=== PATIENT | female | born 1960 | race Caucasian/White ===

== ENCOUNTER → 2020-12-16 | Outpatient (CLI) | payer BC ==
[2020-12-16 14:51] LABS: BGAS PH 7.45 (7.35-7.45)
[2020-12-16 15:14] LABS: CALCIUM 9.2 mg/dL (8.5-10.1); CREATININE 0.9 mg/dL (0.6-1.0); GFR 63.7; POTASSIUM 4.1 mmol/L (3.5-5.1)
--- NOTE | 2020-12-17 09:59 | RAD ---
CT scan of the chest without contrast 12/16/2020 CLINICAL HISTORY: Respiratory acidosis. TECHNIQUE: Unenhanced contiguous, 0.625 mm axial sections were obtained through the chest and upper a bdomen. 3 mm reconstructed sagittal, axial coronal images were obtained. One or more of the following individualized dose reduction techniques were utilized for this study: 1. Automated exposure control. 2. Adjustment of the mA and/or kV according to patient size. 3. Use of iterative reconstruction technique. FINDINGS: The heart and thoracic aorta are within normal limits. Prominent hilar and mediastinal lymp h nodes are seen which measure 5 mm to 1.7 cm in size. These may be reactive. No axillary lymphadenop athy is noted. Somewhat linear appearing areas of scarring and/or subsegmental atelectasis are seen involving both u pper lobes, the right middle lobe and both lower lobes. No area of consolidation is seen. A 4 mm calc ified granuloma is seen involving the left upper lobe. No pneumothorax or pleural effusion is noted. Images through the upper abdomen demonstrate surgical clips within the gallbladder fossa consistent w ith a cholecystectomy. Surgical clips are seen within the left upper quadrant of the abdomen. Minimal S-shaped curvature of the thoracolumbar spine is seen. Degenerative changes are seen involving the t horacic spine. IMPRESSION: Areas of scarring and/or subsegmental atelectasis are seen throughout both lungs as discu ssed above. No area of consolidation is seen. Electronically signed by: Bryan Hamilton MD (12/17/2020 9:57 AM) [id number]
--- NOTE | 2020-12-20 18:38 | RAD ---
DATE: 12/16/2020 EXAM: DIGITAL SCREEN BILAT W/CAD HISTORY: Screening COMPARISON: Prior exams dating back to 06/20/2013 This study was interpreted with the benefit of Computerized Aided Detection (CAD). Breast Density: SCATTERED The breast parenchyma shows scattered fibroglandular densities. Breast parenchyma level B. FINDINGS: No mass, suspicious calcification, or architectural distortion in either breast. IMPRESSION: No evidence of malignancy. BI-RADS CATEGORY: 1 NEGATIVE RECOMMENDED FOLLOW-UP: 12M 12 MONTH FOLLOW-UP PQRS compliance statement: Patient information was entered into a reminder system with a target due date for the next mammogram. Mammography is a sensitive method for finding small breast cancers, but it does not detect them all and is not a substitute for careful clinical examination. A negative mammogram does not negate a clinically suspicious finding and should not result in delay in biopsying a clinically suspicious abnormality. "Our facility is accredited by the [employer] Mammography Program."
== END ==
LOC: MAMMO 13:28
PROVIDERS: ATTEND Family Medicine
DX: Z12.31 Encounter for screening mammogram for malignant neoplasm of breast (principal); J84.10 Pulmonary fibrosis, unspecified; R59.0 Localized enlarged lymph nodes; Z90.49 Acquired absence of other specified parts of digestive tract
CPT/HCPCS: 36415; 36600; 71250; 77067; 80048; 82803